=== PATIENT | male | born 1965 | race Caucasian/White ===

== ENCOUNTER → 2016-08-26 | Outpatient (CLI) | payer BC ==
[~2016-08-26] MED LIST: PEDICHW50 PO; PRLSR20 PO
--- NOTE | 2016-08-26 08:37 | DIAGNOSTIC IMAGING REPORT ---
FUSION CT SINUSES W/O CLINICAL HISTORY: Nasal septal deviation and sinonasal disease. COMPARISON STUDY: No previous studies for comparison. FINDINGS: Helical images were acquired in the transverse plane. The study was reviewed on the 3-D workstation. There is no hydrocephalus. No orbital lesions are visualized. The mastoid air cells are symmetrically aerated. Middle ear cavities are symmetrically aerated. There is minimal mucosal thickening within the sphenoid, ethmoid, frontal and maxilla sinuses. There are no air-fluid levels to indicate acute sinusitis. The right ostiomeatal unit is widely patent. There is minimal ostial narrowing of the left ostiomeatal unit. The ethmoid notches are covered. The olfactory fossa depth is 4.5 mm bilaterally. There is a left-sided nasal septal spur. The frontoethmoidal recesses are patent bilaterally. IMPRESSION: 1. No evidence of acute sinusitis 2. Very minimal paranasal sinus mucosal thickening 3. Left-sided is septal spur 4. Minimal ostial narrowing of the left ostiomeatal unit Electronically signed by: Lenin Bennett M.D. 08/26/2016 8:35 AM Dictated Date/Time: 08/26/2016 8:29 AM
== END | disposition home or self-care (01) ==
LOC: C.CTS 08:19
DX: J34.2 Deviated nasal septum (principal); J34.89 Other specified disorders of nose and nasal sinuses

== ENCOUNTER → 2016-10-07 | Day surgery (SDC) | payer BC ==
[2016-09-23 12:45] VITALS: Ht 182.9 cm; Wt 77.3 kg
--- NOTE | 2016-10-03 10:33 | DIAGNOSTIC IMAGING REPORT ---
CHEST 2 VIEWS ROUTINE CLINICAL HISTORY: V72.84, Z01.818 preoperative evaluation COMPARISON STUDY: 07/20/2011 FINDINGS: Mild chronic interstitial fibrotic change. No focal infiltrate. Mild underlying emphysematous change. IMPRESSION: Chronic change. No acute process. Electronically signed by: Gallito Pal M.D. 10/03/2016 10:31 AM Dictated Date/Time: 10/03/2016 10:31 AM
[2016-10-03 11:08] LABS: BASO % 0.3 %; BASO ABS # 0.02 K/uL (0-0.2); COMPLETE YES; EOS % 1.3 %; HEMATOCRIT 43.1 % (42-52); IG% 0.3 %; LYMPH % 17.2 %; LYMPH ABS # 1.18 K/uL (1.2-3.4); MEAN CELL VOLUME 94.1 fL (80-100); MEAN CORPUSCULAR HEMOGLOBIN 33.6 pg (25-34); MEAN CORPUSCULAR HGB CONC 35.7 g/dl (32-36); MEAN PLATELET VOLUME 10.6 fL (7.4-10.4); MONO % 7.6 %; NEUT % 73.3 %; PLATELET COUNT 211 K/uL (130-400); RED BLOOD COUNT 4.58 M/uL (4.7-6.1); WHITE BLOOD COUNT 6.87 K/uL (4.8-10.8)
[2016-10-03 11:17] LABS: POTASSIUM 4.4 mmol/L (3.5-5.1)
[2016-10-03 11:18] LABS: INR 0.9 (0.9-1.1); PARTIAL THROMBOPLASTIN RATIO 1.1; PROTHROMBIN TIME (PATIENT) 9.9 SECONDS (9.0-12.0)
[~2016-10-07] VITALS: Ht 182.9 cm; Wt 77.3 kg
[~2016-10-07] MED LIST changes: +CEFAZOLIN 2000 MG/60 ML D5W IV SCH; +DEXAMETHASONE SOD INJ 4 MG/ML VIAL ONE; +EpINEphrine INJ 1MG/ML AMP 1 MG/ML AMP ONE; +FENTANYL CITRATE INJ 50 MCG/1 ML 2 ML VIAL ONE; +HYDROCODONE/ACETAMOPHEN 5/325MG TAB PO PRN; +LACTATED RINGER'S 1000ML 1,000 ML IV SCH; +LIDOCAINE 4% MPF SOAK 5 ML = 1 DOSE TOP ONE; +LIDOCAINE HCL 2% 2 ML VIAL (20MG/ML) ONE; +LIDOCAINE/EPINEPHRINE 1% INJ 50 ML VIAL ONE; +MIDAZOLAM HCL 1 MG/ML 2ML VIAL ONE; +ONDANSETRON INJ 2 MG/ML 2 ML VIAL IV PRN; +ONDANSETRON INJ 2 MG/ML 2 ML VIAL ONE; +OXYMETAZOLINE HCL 0.05% NA SPR 15 ML BTL PRN; +OXYMETAZOLINE HCL 0.05% NA SPR 15 ML BTL SCH; +PROPOFOL IV EMULSION 10 MG/ML 20 ML VIAL IV ONE; +SUCCINYLCHOLINE CHLORIDE 20 MG/ML 10 ML VIAL IV ONE
--- NOTE | 2016-10-07 11:52 | History & Physical Bridge - SC ---
H&P Re-Evaluation Bridge Note: I have examined the patient, reviewed the History & Physical and in the interval since the performance of the History & Physical I have noted the following changes of clinical significance: No changes noted
--- NOTE | 2016-10-07 12:05 | History and Physical: Surg Cnt ---
History & Physical Date Oct 07, 2016. Chief Complaint L>R NASAL OBSTRUCTION History of Present Illness The patient is a 51 year old male with complaints of L>R NASAL OBSTRUCTION Past Medical/Surgical History Medical Problems: (1) Crohn's disease GERD, ARTHRITIS PSH: S/P FOOT AND HAND SURGERIES Allergies Coded Allergies: No Known Allergies (Verified , 10/07/16) Home Medications Scheduled Omeprazole (Prilosec), 20 MG PO BID PRN Pediatric Multiple Vitamin W/ (Flintstones Chewable), 1 TAB PO QAM Physical Examination Skin: warm/dry, no rash Eyes: normal inspection, EOMI, sclerae normal ENT: + pertinent finding (L DNS, R>L ITH) Head: normocephalic, atraumatic Neck: supple, no adenopathy, trachea midline Respiratory/Chest: lungs clear, normal breath sounds, no respiratory distress Neurologic/Psych: no motor/sensory deficits, alert, normal reflexes, oriented x 3 Diagnosis L DNS, R>L ITH Plan of Treatment SEPTOPLASTY AND BILATERAL INFERIOR TURBINATE REDUCTION
--- NOTE | 2016-10-07 12:42 | [facility] Operative Report ---
Operative Report Operative Date Oct 07, 2016. Pre-Operative Diagnosis Septal Deviation, Bilateral Inferior Turbinate Hypertrophy Post-Operative Diagnosis Same Procedure(s) Performed Septoplasty, Bilateral Inferior Turbinate Reduction Surgeon Dr Rojas Division Engineer Surgeon(s) None Estimated Blood Loss 10ml Findings 1. SEVERE L DNS WITH LARGE POSTERIOR SEPTAL SPUR 2. R>L ITH Specimens None I attest to the content of the Intraoperative Record and any orders documented therein. Any exceptions are noted below.
--- NOTE | 2016-10-07 12:44 | Discharge Instructions ---
Discharge Instructions Date of Service Oct 07, 2016. Admission Reason for Admission: SEPTAL DEVIATION, BILATERAL INFERIOR TURBINATE HYPERTROPHY Discharge Discharge Diagnosis / Problem: SAME Discharge Goals Goal(s): Therapeutic intervention Activity Recommendations Activity Limitations: as noted below 1. LIGHT ACTIVITY FOR 2WEEKS 2. NO DRIVING WHILE ON NORCO 3. NO NOSE BLOWING FOR 2 WEEKS . Current Hospital Diet Patient's current hospital diet: Discharge Diet Recommended Diet: Regular Diet Procedures Procedures Performed: Septoplasty, Bilateral Inferior Turbinate Reduction Pending Studies Studies pending at discharge: no Medical Emergencies . Who to Call and When: Medical Emergencies: If at any time you feel your situation is an emergency, please call 911 immediately. . Non-Emergent Contact Non-Emergency issues call your: Surgeon . . "Provider Documentation" section prepared by Moncho Rojas. VTE Core Measure Inpt VTE Proph given/why not?: SCD's
--- NOTE | 2016-10-07 13:17 | Anesthesia Progress Nt - [facility] ---
Anesthesia Post Op Note Date & Time Oct 07, 2016 at 13:17 Vital Signs Pain Intensity: 0 Vital Signs Past 12 Hours Date Time Temp Pulse Resp B/P Pulse Ox O2 Delivery O2 Flow Rate FiO2 10/07/16 13:10 36.6 71 20 10/07/16 13:10 72 20 136/90 97 10/07/16 13:05 63 14 130/94 96 10/07/16 13:05 62 14 10/07/16 13:00 63 16 10/07/16 13:00 64 16 140/93 97 10/07/16 12:55 68 20 10/07/16 12:55 68 20 136/86 97 10/07/16 12:50 72 19 138/86 100 10/07/16 12:50 72 19 10/07/16 12:45 74 12 10/07/16 12:45 74 12 138/88 100 10/07/16 12:42 36.4 70 16 128/83 100 Humidified Oxygen 6 Mask 10/07/16 12:40 71 10/07/16 12:40 71 128/83 99 10/07/16 11:21 36.6 60 16 123/79 98 Room Air Notes Mental Status: alert / awake / arousable, participated in evaluation Pt Amnestic to Procedure: Yes Nausea / Vomiting: adequately controlled Pain: adequately controlled Airway Patency, RR, SpO2: stable & adequate BP & HR: stable & adequate Hydration State: stable & adequate Anesthetic Complications: no major complications apparent
--- NOTE | 2016-10-07 13:18 | OPERATIVE REPORT ---
DATE OF OPERATION: 10/07/2016 PREOPERATIVE DIAGNOSES: 1. Left septal deviation. 2. Right greater than left inferior turbinate hypertrophy. POSTOPERATIVE DIAGNOSES: 1. Left septal deviation. 2. Right greater than left inferior turbinate hypertrophy. PROCEDURES: 1. Septoplasty. 2. Bilateral inferior turbinate outfracture and turbinoplasty. SURGEON: Dr. Rojas. ANESTHESIA: General endotracheal. ESTIMATED BLOOD LOSS: 10 mL. FINDINGS: 1. Severe left septal deviation with large bony septal spur impinging on the airway posteriorly. 2. Right greater than left inferior turbinate hypertrophy. SPECIMENS: None. COMPLICATIONS: None. INDICATIONS FOR THE PROCEDURE: The patient is a 51-year-old male with a history of left greater than right nasal airway obstruction which was unresponsive to maximal medical therapy with nasal steroids and nasal antihistamine sprays. CT scan of the sinuses was obtained which revealed a severe left septal deviation posteriorly with a large septal spur. He also has a right greater than left inferior turbinate hypertrophy. The patient presents for the above-mentioned procedure on an outpatient elective basis. DESCRIPTION OF PROCEDURE: After informed consent had been obtained from the patient, the patient was wheeled to the operating room and placed on the operating table in supine position. Monitors were placed. After induction of general endotracheal anesthesia, the patient's abdomen was prepped in the usual fashion for septoplasty. A total of 10 mL of 1% lidocaine with 1:100,000 epinephrine was used to inject the nasal septum bilaterally, thereby performing hydrodissection of the mucoperichondrial mucoperiosteal flaps. Lidocaine and epinephrine pledgets were then placed in the bilateral nasal cavities and pressure applied. The pledgets were then removed. A #15 scalpel was used to make a left Bronaugh incision through which the left-sided mucoperichondrial mucoperiosteal flap was elevated. A #15 scalpel was then used to incise the quadrangular cartilage with care to preserve a 1.5 cm dorsal and caudal strut and the right sided mucoperichondrial and mucoperiosteal flap was elevated through this cartilaginous incision. The deviated portion of the quadrangular cartilage was then removed using a Rachael knife. An osteotome, mallet, and Igor forceps was then used to remove a large bony septal spur which was impinging on the airway posteriorly and nearly occluding at 100% on the left hand side. The left Ko incision was then closed with several simple interrupted 4-0 chromic sutures. A 4-0 plain gut suture on a Larry needle was then used to perform a clothing stitch of the mucoperichondrial mucoperiosteal flaps bilaterally to help prevent septal hematoma. A Fernandez elevator was then used to infracture and subsequently outfractured and the inferior turbinates bilaterally. Inferior turbinates were injected with 3 mL of 1% lidocaine with 1:100,000 epinephrine. A 2.0 mm turbinate blade using powered instrumentation was then used to perform bilateral inferior turbinoplasties in a submucosal fashion. Sinonasal cavities were then suctioned. An orogastric tube was placed and the stomach was suctioned free of air and stomach contents. This marked the end of the case. The patient tolerated the procedure well and there were no apparent complications. The patient was extubated and transferred to recovery room in stable condition. I attest to the content of the Intraoperative Record and any orders documented therein. Any exceptio ns are noted below.
[2016-10-07 13:19] VITALS: TEMP 36.6
[2016-10-07 13:39] VITALS: BP 130/82; PULSE 58; O2SAT 97
== END | disposition home or self-care (01) ==
LOC: X.SURG 11:08
DX: J34.2 Deviated nasal septum (principal); J34.3 Hypertrophy of nasal turbinates; K21.9 Gastro-esophageal reflux disease without esophagitis; M19.90 Unspecified osteoarthritis, unspecified site

== ENCOUNTER 2025-03-19 08:55 | Inpatient (IN) ==
--- NOTE | 2025-02-19 15:32 | PAT Medication Instructions ---
Medication Instructions Date of Service February 19, 2025 Home Medications lorazepam 0.5 mg tablet 0.5 mg PO DAILY PRN Anxiety omeprazole 20 mg capsule,delayed release 20 mg PO BID acetaminophen 500 mg tablet 1,000 mg PO BID PRN Pain celecoxib 200 mg capsule (Celebrex) 200 mg PO QAM losartan 50 mg tablet 100 mg PO QAM Continue as directed lorazepam 0.5 mg tablet 0.5 mg PO DAILY PRN Anxiety (if needed) ASK your surgeon for instructions celecoxib 200 mg capsule (Celebrex) 200 mg PO QAM DO NOT take the morning of surgery losartan 50 mg tablet 100 mg PO QAM Take morning of surgery With a small sip of water, OTHERWISE NOTHING TO EAT OR DRINK AFTER MIDNIGHT: omeprazole 20 mg capsule,delayed release 20 mg PO BID acetaminophen 500 mg tablet 1,000 mg PO BID PRN Pain (if needed) Take evening before surgery omeprazole 20 mg capsule,delayed release 20 mg PO BID acetaminophen 500 mg tablet 1,000 mg PO BID PRN Pain (if needed) Other Notes If you have any questions please call us at [phone] or [phone] or [phone] or [phone]
--- NOTE | 2025-02-28 09:25 | Anesthesiology Consultation ---
Date of Service February 28, 2025 Assessment & Plan (1) Encounter for pre-operative examination: - awaiting surgeon ordered S PCP clearance 03/11. Chart Review Chart Review: Pending: Refer to Additional Notes / Consult section and Patient seen in Pre Admission Testing Teaching & Discussion Pre-Anesthesia Teaching/Discussion Notes: Instructed NPO after midnight before surgery, except medications with 15 cc of water. Medication instructions provided according to the PAT guidelines. History Surgery Operation Date: 03/19/25 09:05 Proposed Procedures p L4-L5 Decompression and Fusion - Tan Carmichael DO Height/Weight Height: 5 ft 11 in Weight: 79.4 kg Allergies Allergy/AdvReac Type Severity Reaction Status Date / Time No Known Drug Allergies Allergy Verified 02/19/25 14:32 Medications Home Medications Medication Instructions Recorded Confirmed Last Taken lorazepam 0.5 mg tablet 0.5 mg PO DAILY PRN Anxiety 08/27/19 02/19/25 Unknown omeprazole 20 mg capsule,delayed 20 mg PO BID 08/27/19 02/19/25 07/06/23 release acetaminophen 500 mg tablet 1,000 mg PO BID PRN Pain 02/19/25 02/19/25 Unknown celecoxib 200 mg capsule (Celebrex) 200 mg PO QAM 02/19/25 02/19/25 Unknown losartan 50 mg tablet 100 mg PO QAM 02/19/25 02/19/25 Unknown Past Medical History Medical History (Updated 02/28/25 @ 13:08 by Sara Flores PA-C) Acid reflux controlled, stable per pt History of hypertension controlled, stable per pt Hx of Crohn's disease Patient denies h/o stroke, seizures, heart attack, heart failure, DM, blood clots/DVTs or blood transfusions. Exercise / Class Metabolic Activity II 4-5 Yardwork/Stairs/Walk up hill (denies chest discomfort or shortness of breath with one flight of stairs) Past Family History Family History Other Cancer Cardiac abnormality Hearing loss Hypertension Sinusitis Stroke Past Surgical History Surgical History (Updated 02/28/25 @ 13:09 by Sara Flores PA-C) History of colonoscopy History of esophagogastroduodenoscopy (EGD) History of foot surgery left History of hand surgery patient unsure which hand History of sinus surgery Past Anesthesia History No Hx of Anesthesia Complications and No Family Hx of Anesthesia Complications History of PONV No Hx of PONV and No Hx of Motion Sickness Social History Smoking Status: Former smoker Do You Dip or Chew Tobacco: No Smoking End Date: 2 weeks ago Hx Alcohol Use: Yes alcohol intake frequency: 0-2 drinks per day (2-3 hard liquor) Hx Substance Use: No substance use type: does not use Review of Systems Snoring, denies witnessed apneas. Patient denies chest pain, shortness of breath, dyspnea on exertion, fever, chills, cough, wheezing, or palpitations. Physical Exam Vital Signs Vitals BP 145/84 P 78 TEMP 97.8 SP02 98% on RA RESP 18 Physical Patient resting comfortably in chair in no acute distress, alert and oriented, responding appropriately throughout visit Full cervical extension range of motion without pain TMD 3.5 finger breadths Mallampati Score 2 Dentition: one crown, denies chipped or loose teeth, caps, implants or bridges Lungs: normal respiratory effort. Good air movement, clear throughout to auscultation, no adventitious breath sounds Cardiac: regular rate and rhythm, no murmurs noted Carotid arteries: negative bruit bilat Lab Results Anesthesia Preop Results Results Anesthesia Widget: WBC 7.57 K/ul (4.8-10.8) 02/28/25 Hgb 13.2 g/dl (14.0-18.0) L 02/28/25 Hct 36.8 % (42.0-52.0) L 02/28/25 Plt 227 K/uL (130-400) 02/28/25 Na 136 mmol/L (136-145) 02/28/25 K 3.7 mmol/L (3.5-5.1) 02/28/25 Cl 102 mmol/L (98-107) 02/28/25 CO2 26 mmol/L (21-32) 02/28/25 BUN 11 mg/dl (6-23) 02/28/25 Creat 0.83 mg/dl (0.6-1.4) 02/28/25 Glucose Level 85 mg/dl (70-99(Fasting)) 02/28/25 PT 10.2 Seconds (9.0-12.0) 02/28/25 PTT 29 Seconds (21-31) 02/28/25 INR 0.9 (0.9-1.1) 02/28/25 Urine Color Yellow 02/28/25 Urine Appearance Clear (Clear) 02/28/25 Urine pH 6.5 (4.5-7.5) 02/28/25 Urine Specific [place] 1.010 (1.000-1.030) 02/28/25 Urine Protein Negative (Negative) 02/28/25 Urine Glucose (UA) Negative (Negative) 02/28/25 Urine Ketones Negative (Negative) 02/28/25 Urine Blood Negative (Negative) 02/28/25 Urine Nitrite Negative (Negative) 02/28/25 Urine Bilirubin Negative (Negative) 02/28/25 Urine Urobilinogen Negative (Negative) 02/28/25 Urine Leukocyte Esterase Negative (Negative) 02/28/25 Blood Type O Positive 02/28/25 Antibody Screen NEGATIVE 02/28/25 Testing Electrocardiogram Date: 02/28/25 NSR, rate 73 bpm Incomplete RBBB Chest X-Ray Date: 02/28/25 No acute findings.
[2025-03-19] MEDS ORDERED: PROPOFOL IV EMULSION 10 MG/ML 20 ML VIAL IV ONE (09:17)
[2025-03-19] MEDS ORDERED: LIDOCAINE 2% 2 ML VIAL/AMP(20MG/ML) INFIL ONE (09:17)
[2025-03-19] MEDS ORDERED: MIDAZOLAM HCL 1 MG/ML 2ML VIAL ONE (09:17)
[2025-03-19] MEDS ORDERED: ROCURONIUM BROMIDE 10 MG/ML 5 ML VIAL IV ONE (09:17)
[2025-03-19] MEDS ORDERED: ONDANSETRON INJ 2 MG/ML 2 ML VIAL ONE (09:17)
[2025-03-19] MEDS ORDERED: DEXAMETHASONE SOD INJ 4 MG/ML VIAL ONE ×2 (09:17→10:37)
[2025-03-19] MEDS: LR 15ML/HR IV SCH (09:25)
[2025-03-19] MEDS: LR 60ML/HR IV SCH (09:25)
[2025-03-19] MEDS: ACETAMINOPHEN 500 MG TAB PO SCH (09:26)
[2025-03-19] MEDS: GABAPENTIN 600 MG DOSE PO SCH (09:26)
[2025-03-19] MEDS: CeleBREX 200 MG CAP PO SCH (09:26)
--- NOTE | 2025-03-19 09:54 | History & Physical Bridge Note ---
Date of Service March 19, 2025 History & Physical Bridge Note I have examined the patient, reviewed the History & Physical and in the interval since the performance of the History & Physical I have noted the following changes of clinical significance: no changes noted
--- NOTE | 2025-03-19 09:56 | History & Physical Report ---
Date of Service March 19, 2025 Assessment & Plan (1) Spondylolisthesis, lumbar region: Plan: Decompression fusion L4-L5 History of Present Illness Chief Complaint: Back and leg pain Primary Care Provider: Rafael Blanc MD This is a 59-year-old male presents cardiac send back and leg pain and failing course of nonoperative care is here for surgical invention. Allergies Allergy/AdvReac Type Severity Reaction Status Date / Time No Known Drug Allergies Allergy Verified 03/19/25 09:15 Home Medications Medication Instructions Recorded Confirmed Type lorazepam 0.5 mg tablet 0.5 mg PO DAILY PRN Anxiety 08/27/19 03/19/25 History omeprazole 20 mg capsule,delayed 20 mg PO BID 08/27/19 03/19/25 History release acetaminophen 500 mg tablet 1,000 mg PO BID PRN Pain 02/19/25 03/19/25 History celecoxib 200 mg capsule (Celebrex) 200 mg PO QAM 02/19/25 03/19/25 History losartan 50 mg tablet 100 mg PO QAM 02/19/25 03/19/25 History cholecalciferol (vitamin D3) 125 250 mcg PO DAILY 03/19/25 03/19/25 History mcg (5,000 unit) tablet (Vitamin D3) Past Med/Surg History Problem List (Updated 03/19/25 @ 09:56 by Tan Carmichael DO) Spondylolisthesis, lumbar region Encounter for pre-operative examination Allergic rhinitis Chronic sinusitis Crohn's disease 1st MTP arthritis Medical History (Updated 03/19/25 @ 09:56 by Tan Carmichael DO) History of smoking Quit smoking January 2025 (smoked 2 packs a day for 20 years) Hx of Crohn's disease History of hypertension controlled, stable per pt Acid reflux controlled, stable per pt Surgical History History of esophagogastroduodenoscopy (EGD) History of sinus surgery History of hand surgery patient unsure which hand History of foot surgery left History of colonoscopy Family History Other Cancer Cardiac abnormality Hearing loss Hypertension Sinusitis Stroke Social History (Updated 08/27/19 @ 10:09 by Amna Ibanez MA) Smoking Status: Former smoker Tobacco Type: Cigarettes Smoking End Date: 2 weeks ago; Second Hand Exposure: No; Do You Dip or Chew Tobacco: No; Tobacco Cessation Education Requested by Patient: No Hx Alcohol Use: Yes Hx Substance Use: No Preferred Language: Occitan Communication Ability: Effective Residential Sales Consultant Required: No Beliefs That Will Affect Care: None Current Living Situation: Spouse current occupational status: employed Other Information That Helps Us Care for You: No Feels Safe at Home: Yes Safety Concerns: Feels Safe At This Time Assistive Devices: Glasses Physical Exam Physical Exam: Patient is alert and oriented heart regular rhythm lungs clear Results & Data Results & Data Vital Signs (Past 12 Hours) Vital Signs Temp Pulse Resp BP BP Pulse Ox O2 Del Method 03/19/25 09:19 36.9 C 68 18 192/105 H 172/112 H 99 Room Air
[2025-03-19] MEDS ORDERED: ATROPINE SULFATE 0.1 MG/ML 10ML SYR IV PRN (10:05)
[2025-03-19] MEDS ORDERED: ONDANSETRON INJ 2 MG/ML 2 ML VIAL IV PRN ×2 (10:05→13:06)
[2025-03-19] MEDS ORDERED: PROMETHAZINE HCL 6.25 MG in SODIUM CHLORIDE 0.9% 50 ML IV PRN (10:05)
[2025-03-19] MEDS ORDERED: SUGAMMADEX SODIUM 200 MG/2 ML VIAL IV ONE (10:51)
[2025-03-19] MEDS ORDERED: ePHEDrine sulfate 50 MG/5 ML SYR ONE (11:06)
[2025-03-19] MEDS ORDERED: PHENYLEPHRINE 100MCG/ML 5ML SYR ONE (11:06)
[2025-03-19] MEDS: BUPIVACAINE/EPINEPHRINE 0.25% 1:200,000 30 ML VIAL ONE (11:18)
[2025-03-19] MEDS: ceFAZolin 330 MG/ML 1 GM VIAL ONE (11:47)
--- NOTE | 2025-03-19 11:58 | Operative Report ---
Post Operative Report Pre & Post Diagnosis Operation Date: 03/19/25 10:25 Pre-Op Diagnosis: #1 spondylolisthesis Lumbar Region #2 lumbar spondylosis with radiculopathy Post-Op Diagnosis: Same I identified the patient and participated in the time-out.: Yes Procedure Operation Date: 03/19/25 10:25 Actual Procedures #1 lumbar decompression bilateral facetectomies and foraminotomies L3-L4 L4-5 for #2 posterior spinal fusion L4-5 #3 placement posterior instrumentation L4-L5 using camper. #4 interbody fusion L4-5 #5 placement of Spira 15 x 26 mm x 2 at L4-5. #6 placement locally harvested morselized autograft and posterior gutters. #7 placement of Proteus combined with Koros in the posterior lateral gutters and os design interbody space. #8 application of versa wrap of the exposed dura. Surgeon Tan Carmichael, Plater Hot Dip Razia Rios Estimated Blood Loss 50 Findings Consistent with Post-Op Diagnosis Specimens None Indications This is a 59-year-old male presents problems diagnosis of failing course of nonoperative care is here for surgical invention. Description of Procedure Patient was met with identified informed consent obtained. Patient was then taken to the operative suite underwent intubation placed in a prone position on the Roberto table on top of the Gwyn frame. All bony prominences well-padded eyes inspected to ensure no external pressure placed upon them. This point the lumbar spine was prepped and draped in normal sterile fashion. Sharp dissection with the assistance of Bovie cautery performed down to and exposing the lamina and transverse processes of L4-L5. From caudal to cephalad fashion complete laminectomy of L4 was performed including bilateral medial facetectomy and foraminotomies addressing severe neural compression. This followed by partial laminectomy of L3 with bilateral medial facetectomies to address all subarticular stenosis. Pedicle screws were then placed in L4-L5 bilaterally with assistance of fluoroscopy and the proper size nelida placed. By way of transforaminal approach on the right a discectomy of L for L5 was performed endplates guided to subcortical bleeding bone and a 15 x 26 mm spiral cage tapped into position. Then proceeded to the left transforaminal region at L4-5. Again discectomy performed. Endplates guided to subcortical bleeding bone and a second 15 x 26 mm spiral cage tapped in position. Please note both cages were packed with os design bone graft. The rods were then compressed locked in final position bilaterally. The transverse processes of L4-L5 burred to subcortical bleeding bone. Proteus combined with Koros and local graft placed in posterior gutters. Versa wrap placed over the exposed dura. 15 round LITO drain inserted. The incision was then closed with 1 Vicryl the fascia 2-0 Vicryl subcutaneously and 4 Monocryl for final skin closure. Steri-Strips and sterile dressing placed. Patient waken taken to PACU in stable condition. Please note Razia Rios was present at the entire procedure and on the patient positioning complex portion of the surgery and final skin closure. Im ordering 10 grams of Collagen Powder ([facility] A6010 Primary Dressing) and 10 bordered super absorbent ([facility] A6196 Secondary Dressing) to treat an incision wound that was caused by a spine procedure. The incision is approximately 2 cm(W) x 2 cm(L) down to the spinal column and epidural space 2 cm (D) in size and is a full thickness wound showing no signs of infection. Collagen comes in 1 gram packets so 10 packets were ordered. Given the size of the wound, with moderate exudate I chose to order a 10 day supply. The patient will be provided instructions for proper application of the collagen wound kit. The patient will be asked to apply the collagen powder daily and then cover it with sterile dressings dispensed. Collagen was selected as I expect the collagen to attract monocytes and fibroblasts, act as a sacrificial substrate for MMPs, and ultimately proved a matrix for tissue and vessel growth. The collagen will act as a primary dressing in this scenario. It is medically necessary for proper healing of these wounds to improve bioavailability and contact with each wound surface, this is also to help prevent infection of wounds and promote healing ultimately leading to a better healing outcome and limit the risk of infection. I attest to the content of the Intraoperative Record and any orders documented therein. Any exceptions are noted below.
[2025-03-19] MEDS ORDERED: HYDROmorphone INJ 0.5 MG/0.5 ML SYR IV PRN (13:06)
[2025-03-19] MEDS ORDERED: DO NOT ADMINISTER PNEUMOCOCCAL VACCINE PRN (13:06)
[2025-03-19] MEDS ORDERED: PROMETHAZINE 12.5 MG/50.5 ML BAG IV PRN (13:06)
[2025-03-19] MEDS ORDERED: MAGNESIUM HYDROXIDE SUSP 30 ML UDC PO PRN (13:06)
[2025-03-19] MEDS ORDERED: SOD PHOSPHATE/SOD BIPHOSPHATE ENEMA 132 ML BTL PR PRN (13:06)
[2025-03-19] MEDS ORDERED: ONDANSETRON 4 MG OD TAB PO PRN (13:06)
[2025-03-19] MEDS ORDERED: diphenhydrAMINE Capsule 25 MG CAP PO PRN (13:06)
[2025-03-19] MEDS ORDERED: DO NOT ADMINISTER FLU VACCINE PRN (13:06)
[2025-03-19] MEDS ORDERED: ALUMINUM/MAGNESIUM SUSP 30 ML UDC PO PRN (13:06)
[2025-03-19] MEDS ORDERED: NALOXONE HCL 0.4 MG/1 ML VIAL/CARP IV PRN (13:06)
[2025-03-19] MEDS ORDERED: FAMOTIDINE 20 MG TAB PO PRN (13:06)
[2025-03-19] MEDS ORDERED: ACETAMINOPHEN 1,000 MG/100 ML VIAL IV PRN (13:06)
[2025-03-19] MEDS ORDERED: METOCLOPRAMIDE HCL INJ 5 MG/ML 2 ML VIAL IV PRN (13:06)
[2025-03-19] MEDS: HYDROmorphone INJ 1 MG/ML SYRINGE IV PRN (13:25)
[2025-03-19] MEDS: FLOSEAL HEMOSTATIC MATRIX 10ML TOP ONE (14:04)
[2025-03-19] MEDS: LACTATED RINGER'S 1,000 ML IV SCH (14:15)
--- NOTE | 2025-03-19 14:34 | Anesthesiology Progress Note ---
Date of Service March 19, 2025 Anesthesia Post Procedure Vital Signs Vital Signs: Temp Pulse Pulse Resp BP BP Pulse Ox 03/19/25 13:59 36.4 C L 78 16 160/92 H 97 03/19/25 13:30 37 C 71 16 161/91 H 93 03/19/25 13:00 36.3 C L 70 16 156/94 H 98 03/19/25 12:45 80 18 151/93 H 92 03/19/25 12:35 36.3 C L 74 16 154/95 H 96 03/19/25 12:25 68 16 151/98 H 92 03/19/25 12:15 72 14 152/91 H 100 03/19/25 12:05 36.2 C L 93 H 18 157/92 H 99 03/19/25 09:19 36.9 C 68 18 192/105 H 172/112 H 99 O2 Del Method O2 Flow Rate 03/19/25 13:59 Room Air 03/19/25 13:30 Room Air 03/19/25 13:00 Room Air 03/19/25 12:45 Room Air 03/19/25 12:35 Room Air 03/19/25 12:25 Room Air 03/19/25 12:15 Oxymask 4 03/19/25 12:05 Oxymask 6 03/19/25 09:19 Room Air Pain Intensity Back: Pain Intensity: 8 Transfer of Care Handoff Completed per policy Notes Mental Status: alert / awake / arousable Patient Amnestic to Procedure: Yes Nausea / Vomiting: adequately controlled Pain: adequately controlled Airway Patency, RR, SpO2: stable & adequate BP & HR: stable & adequate Hydration State: stable & adequate Anesthetic Complications: no major complications apparent
[2025-03-19] MEDS: KETOROLAC 30 MG/ML VIAL IV PRN (15:21)
--- NOTE | 2025-03-19 15:28 | Hospitalist Consultation ---
Date of Consultation March 19, 2025 Assessment & Plan (1) Spondylolisthesis, lumbar region: (2) S/P spinal surgery: Patient is a 59-year-old male with past medical history significant for HTN, ileocolonic Crohn's disease, GERD, combined forms of age-related cataracts of both eyes, insomnia and tobacco use disorder who is being seen in consultation for routine postoperative medical management after undergoing elective L4-L5 decompression and fusion performed by Dr. Carmichael earlier today for treatment of lumbar spondylosis with radiculopathy after failing nonoperative care. POD #0 s/p L4-L5 decompression and fusion with Dr. Carmichael EBL: 50mL & Preop Hgb: 13.2 as of 02/28/25 Per primary service for pain control, wound care, anticoagulation and activities Continue incentive spirometry, PT/OT when appropriate as per primary service Monitor H/H for acute blood loss anemia and transfuse blood products PRN (3) Crohn's disease: Not currently undergoing active treatment; follows with [facility], Dr. Baig Considering biologic therapy once he recovers from above spinal operation per visit note from 01/30/25 (4) Acid reflux: Continue PPI DVT Prophylaxis: As per primary service PCP: Rafael Blanc MD Disposition: Routine DC planning as per primary service Thank you for this consultation. We will follow the patient with you during their hospital stay. You can reach a member of the [facility] Hospitalist Team 06/02 via [employer]. Patient seen in collaboration with Dr. Ortiz. Please see addendum. I spent a total of 38 minutes coordinating, documenting, and providing care for this patient excluding time spent in the performance of separately billed services or time spent by another provider/QHP. This included personally reviewing all current laboratories and imaging studies, medical reconciliation, outpatient chart review and discussion with specialists. This chart was completed in part utilizing Speech Voice Recognition Software. Grammatical errors, random word insertions, pronoun errors, and incomplete sentences are an occasional consequence of this system due to software limitations, ambient noise, and hardware issues. Any formal questions or concerns about the content, text, or information contained within the body of this dictation should be directly addressed to the provider for clarification. Supervising Physician Co-Signing Physician Notes 59-year-old male was seen and examined at bedside as a medical consultation status post lumbar spine surgery. Patient reports improvement in his BLE radicular signs and symptoms, reports operative pain site under control. Monitor H&H for blood loss anemia. On exam: Low back with clean dressing without soakage, LITO drain with moderate serosanguineous collection noted. Distal neurovascular status WNL. Rest of the examination as above. I have seen and examined the patient and have discussed the case with the provider above. I agree with the assessment and plan as stated. Total time spent independently: 16 minutes. History of Present Illness Reason for Consultation: Routine postoperative medical management Requesting Physician: Tan Carmichael DO Attending Physician: Tan Carmichael DO History of Present Illness Patient is a 59-year-old male with past medical history significant for HTN, ileocolonic Crohn's disease, GERD, combined forms of age-related cataracts of both eyes, insomnia and tobacco use disorder who is being seen in consultation for routine postoperative medical management after undergoing elective L4-L5 decompression and fusion performed by Dr. Carmichael earlier today for treatment of lumbar spondylosis with radiculopathy after failing nonoperative care. History obtained from the patient and associated chart review. Endorses adequate pain control postoperatively, feels BLE radicular symptoms have improved. Denies any chest pain or SOB. Tolerating bites of ice cream without issue. Plans to advance his diet for dinner. Denies any N/V. Allergies Allergy/AdvReac Type Severity Reaction Status Date / Time No Known Drug Allergies Allergy Verified 03/19/25 09:15 Home Medications Medication Instructions Recorded Confirmed Type lorazepam 0.5 mg tablet 0.5 mg PO DAILY PRN Anxiety 08/27/19 03/19/25 History omeprazole 20 mg capsule,delayed 20 mg PO BID 08/27/19 03/19/25 History release acetaminophen 500 mg tablet 1,000 mg PO BID PRN Pain 02/19/25 03/19/25 History celecoxib 200 mg capsule (Celebrex) 200 mg PO QAM 02/19/25 03/19/25 History losartan 50 mg tablet 100 mg PO QAM 02/19/25 03/19/25 History amlodipine 10 mg tablet 10 mg PO DAILY 03/19/25 03/19/25 History cholecalciferol (vitamin D3) 125 250 mcg PO DAILY 03/19/25 03/19/25 History mcg (5,000 unit) tablet (Vitamin D3) oxycodone 5 mg tablet 5 mg PO Q6H PRN pain #30 tabs 03/19/25 03/19/25 Rx tramadol 50 mg tablet 50 mg PO Q6H PRN pain, moderate 03/19/25 03/19/25 Rx #30 tabs Patient History Medical History History of smoking Quit smoking January 2025 (smoked 2 packs a day for 20 years) Hx of Crohn's disease History of hypertension controlled, stable per pt Surgical History History of esophagogastroduodenoscopy (EGD) History of sinus surgery History of hand surgery patient unsure which hand History of foot surgery left History of colonoscopy Family History Other Cancer Cardiac abnormality Hearing loss Hypertension Sinusitis Stroke Social History Smoking Status: Former smoker Tobacco Type: Cigarettes Smoking End Date: 2 weeks ago; Second Hand Exposure: No; Do You Dip or Chew Tobacco: No; Tobacco Cessation Education Requested by Patient: No Hx Alcohol Use: Yes Hx Substance Use: No Preferred Language: Greek Communication Ability: Effective Remote Control Mirror Installer Required: No Beliefs That Will Affect Care: None Current Living Situation: Spouse current occupational status: employed Other Information That Helps Us Care for You: No Feels Safe at Home: Yes Safety Concerns: Feels Safe At This Time Assistive Devices: Glasses Review of Systems Review of Systems: At least ten systems reviewed and negative, except as noted in the HPI. Physical Exam Physical Exam: General: WD/WN, NAD, sitting up in bed, pleasant, conversing appropriately, A+Ox3, at bedside HEENT: Normocephalic, atraumatic, oropharynx normal Respiratory: Normal respiratory effort, CTAB Cardiovascular: RRR, normal peripheral pulses, no BLE edema Abdomen/GI: Active bowel sounds, soft, nontender to palpation in all quadrants Extremities/Musculoskeletal: No cyanosis/clubbing, actively moves all extremities, surgical dressing on low back C/D/I, LITO drain x 1 with serosanguineous outpt Neurologic: No overt focal deficits, CN's II-XI not formally tested but appear grossly intact bilaterally Results & Data Results & Data Vital Signs (Past 12 Hours) Vital Signs Temp Pulse Pulse Resp BP BP Pulse Ox 03/19/25 15:00 36.3 C L 77 16 155/93 H 95 03/19/25 13:59 36.4 C L 78 16 160/92 H 97 03/19/25 13:30 37 C 71 16 161/91 H 93 03/19/25 13:00 36.3 C L 70 16 156/94 H 98 03/19/25 12:45 80 18 151/93 H 92 03/19/25 12:35 36.3 C L 74 16 154/95 H 96 03/19/25 12:25 68 16 151/98 H 92 03/19/25 12:15 72 14 152/91 H 100 03/19/25 12:05 36.2 C L 93 H 18 157/92 H 99 03/19/25 09:19 36.9 C 68 18 192/105 H 172/112 H 99 O2 Del Method O2 Flow Rate 03/19/25 15:00 Room Air 03/19/25 13:59 Room Air 03/19/25 13:30 Room Air 03/19/25 13:00 Room Air 03/19/25 12:45 Room Air 03/19/25 12:35 Room Air 03/19/25 12:25 Room Air 03/19/25 12:15 Oxymask 4 03/19/25 12:05 Oxymask 6 03/19/25 09:19 Room Air (3) Crohn's disease Digestive disease complication type: without complication Gastrointestinal tract location: unspecified location Qualified Code(s): K50.90 - Crohn's disease, unspecified, without complications (4) Acid reflux Esophagitis presence: esophagitis presence not specified Qualified Code(s): K21.9 - Gastro-esophageal reflux disease without esophagitis
[2025-03-19] MEDS: DOCUSATE SODIUM/SENNA 50/8.6MG TAB PO SCH (21:21)
[2025-03-19] MEDS: LORazepam 0.5 MG TAB PO PRN (21:31)
[2025-03-20] MEDS: POLYETHYLENE (MIRALAX) 17 GM PACK PO SCH (05:41)
[2025-03-20 06:01] LABS: Hematocrit (blood only) 30.3 % (42.0-52.0); Hemoglobin 10.7 g/dl (14.0-18.0); Immature Granulocytes # (auto) 0.03 K/uL (0.01-0.20); Immature Granulocytes % (auto) 0.3 %; Mean Corpuscular Hemoglobin 32.8 pg (25.0-34.0); Mean Corpuscular Volume 92.9 fL (80.0-100.0); Platelet Count 192 K/uL (130-400); RDW Standard Deviation 43.1 fL (36.4-46.3); Red Blood Count 3.26 M/uL (4.70-6.10); White Blood Count 11.57 K/ul (4.8-10.8)
[2025-03-20 06:17] LABS: Anion Gap 6.0 (3-11); Blood Urea Nitrogen 10.0 mg/dl (6-23); Calcium 8.6 mg/dl (8.6-10.3); Carbon Dioxide 27.0 mmol/L (21-32); Chloride 104.0 mmol/L (98-107); Creatinine Clr Calc Pharmacy 94.1 ml/min; Glucose 107.0 mg/dl (70-99(Fasting)); Potassium 3.5 mmol/L (3.5-5.1); Sodium 137.0 mmol/L (136-145)
--- NOTE | 2025-03-20 08:29 | Orthopedic Progress Note ---
Date of Service March 20, 2025 Assessment & Plan (1) Spondylolisthesis, lumbar region: Plan: Today we will begin official physical therapy. Ambulate as tolerated. Monitor LITO output. Hopefully discharge over next few days. Admission and Anticipated Discharge Date Admission Date: March 19, 2025 Subjective Patient's back pain is controlled leg symptoms improved. Physical Exam Physical Exam: Patient is currently in bed. Appears comfortable. Distracted testing. Results & Data Vital Signs (Past 12 Hours) Vital Signs Temp Pulse Resp BP BP Pulse Ox O2 Del Method 03/20/25 07:54 36.8 C 73 18 148/86 H 96 Room Air 03/20/25 07:41 Room Air 03/20/25 03:00 36.8 C 77 18 100/57 L 95 Room Air 03/19/25 23:00 36.8 C 75 16 124/75 94 Room Air
[2025-03-20] MEDS: CHOLECALCIFEROL 125 MCG (5,000 UNITS) TAB PO SCH (09:40)
[2025-03-20] MEDS: LOSARTAN POTASSIUM 50 MG TAB PO SCH (09:40)
[2025-03-20] MEDS: dexAMETHasone 6 MG in SYRINGE 0 ML IV SCH (09:44)
--- NOTE | 2025-03-20 10:23 | Hospitalist Progress Note ---
Date of Service March 20, 2025 Assessment & Plan (1) Spondylolisthesis, lumbar region: (2) S/P spinal surgery: Plan: Mr. Blevins is a 59-year-old male with past medical history significant for HTN, ileocolonic Crohn's disease, GERD, combined forms of age-related cataracts of both eyes, insomnia and tobacco use disorder who is being seen in consultation for routine postoperative medical management after undergoing elective L4-L5 decompression and fusion performed by Dr. Carmichael 03/19 for treatment of lumbar spondylosis with radiculopathy after failing nonoperative care. POD #1s/p L4-L5 decompression and fusion with Dr. Carmichael #Post operative anemia 2/2 blood loss EBL: 50mL & Preop Hgb: 13.2 as of 02/28/25 Hgb post op 10.7 Transfuse <7 or symptomatic CBC in am CTM Per primary service for pain control, wound care, anticoagulation and activities Continue incentive spirometry, PT/OT when appropriate as per primary service (3) Crohn's disease: Plan: Not currently undergoing active treatment; follows [facility], Dr. Baig Considering biologic therapy once he recovers from above spinal operation per visit note from 01/30/25 (4) Acid reflux: Plan: Continue PPI DVT Prophylaxis: As per primary service PCP: Rafael Blanc MD Disposition: Routine DC planning as per primary service Thank you for this consultation. We will follow the patient with you during their hospital stay. You can reach a member of the [facility] Hospitalist Team 06/02 via [email or web address]. I spent a total of 40 minutes coordinating, documenting, and providing care for this patient excluding time spent in the performance of separately billed services Admission and Anticipated Discharge Date Admission Date: March 19, 2025 Subjective reports some discomfort after ambulation this am, but reports being able to ambulate independently and with BM this morning Physical Exam Constitutional: WD/WN, vitals as above Respiratory: normal respiratory effort, lungs clear to auscultation Cardiovascular: RRR, no murmur, no edema Gastrointestinal (Abdomen): normal bowel sounds, soft, nontender, no hepatosplenomegaly Results & Data Results & Data Vital Signs (Past 12 Hours) Vital Signs Temp Pulse Resp BP BP Pulse Ox O2 Del Method 03/20/25 07:54 36.8 C 73 18 148/86 H 96 Room Air 03/20/25 07:41 Room Air 03/20/25 03:00 36.8 C 77 18 100/57 L 95 Room Air 03/19/25 23:00 36.8 C 75 16 124/75 94 Room Air Laboratory Results Short CBC 03/20/25 Range/Units 05:40 WBC 11.57 H (4.8-10.8) K/ul Hgb 10.7 L (14.0-18.0) g/dl Hct 30.3 L (42.0-52.0) % Plt Count 192 (130-400) K/uL BMP 03/20/25 05:40 Sodium 137 Potassium 3.5 Chloride 104 Carbon Dioxide 27 BUN 10 Creatinine 0.90 Glucose 107 H Calcium 8.6 Medications Administered Home Medications Medication Instructions Recorded Confirmed Last Taken lorazepam 0.5 mg tablet 0.5 mg PO DAILY PRN Anxiety 08/27/19 03/19/25 Unknown omeprazole 20 mg capsule,delayed 20 mg PO BID 08/27/19 03/19/25 03/19/25 07:00 release acetaminophen 500 mg tablet 1,000 mg PO BID PRN Pain 02/19/25 03/19/25 03/18/25 16:00 celecoxib 200 mg capsule (Celebrex) 200 mg PO QAM 02/19/25 03/19/25 03/18/25 07:00 losartan 50 mg tablet 100 mg PO QAM 02/19/25 03/19/25 03/18/25 07:00 amlodipine 10 mg tablet 10 mg PO DAILY 03/19/25 03/19/25 Unknown cholecalciferol (vitamin D3) 125 250 mcg PO DAILY 03/19/25 03/19/25 03/18/25 12:00 mcg (5,000 unit) tablet (Vitamin D3) oxycodone 5 mg tablet 5 mg PO Q6H PRN pain #30 tabs 03/19/25 03/19/25 Unknown tramadol 50 mg tablet 50 mg PO Q6H PRN pain, moderate 03/19/25 03/19/25 Unknown #30 tabs Active Medications Generic Name Dose Route Start Last Admin Trade Name Freq PRN Reason Stop Dose Admin Amlodipine Besylate 10 mg 03/20/25 09:00 03/20/25 09:40 Amlodipine Besylate 5 Mg Tab PO 04/19/25 08:59 10 mg DAILY BARBARA Administration Hydromorphone HCl 1 mg 03/19/25 13:06 03/20/25 09:12 Hydromorphone Inj 1 Mg/Ml Syringe IV 04/02/25 13:05 1 mg Q3H PRN Administration SEVERE Pain (7,8,9,10) Dexamethasone 6 mg/ Syringe 1.5 mls @ 1 mls/min 03/20/25 09:00 03/20/25 09:44 IV 03/22/25 09:02 1 mls/min DAILY BARBARA Administration Cefazolin Sodium 2,000 mg in 15 mls @ 3.75 mls/min 03/20/25 06:30 03/20/25 06:46 Ancef 2000mg IV 03/27/25 06:29 3.75 mls/min Q8H BARBARA Administration Ketorolac Tromethamine 30 mg 03/19/25 13:06 03/19/25 15:21 Ketorolac 30 Mg/Ml Vial IV 30 mg Q6H PRN Administration Pain Lorazepam 0.5 mg 03/19/25 13:06 03/19/25 21:31 Lorazepam 0.5 Mg Tab PO 04/18/25 13:05 0.5 mg Q8H PRN Administration Sedation/Anxiety Losartan Potassium 100 mg 03/20/25 09:00 03/20/25 09:40 Losartan Potassium 50 Mg Tab PO 04/19/25 08:59 100 mg QAM BARBARA Administration Oxycodone HCl 5 - 10 mg 03/19/25 13:06 03/20/25 04:15 Oxycodone Hcl Ir 5 Mg Tab (Immediate Release) PO 04/02/25 13:05 5 mg Q4H PRN Administration MOD/SEV Pain & Pre PT Pantoprazole Sodium 40 mg 03/19/25 21:00 03/20/25 09:40 Pantoprazole 40 Mg Tab PO 04/18/25 20:59 40 mg BID BARBARA Administration Senna/Docusate Sodium 2 tab 03/19/25 21:00 03/19/25 21:21 Docusate Sodium/Senna 50/8.6mg Tab PO 04/18/25 20:59 2 tab HS BARBARA Administration Vitamin D 250 mcg 03/20/25 09:00 03/20/25 09:40 Cholecalciferol 125 Mcg (5,000 Units) Tab PO 04/19/25 08:59 250 mcg DAILY BARBARA Administration (3) Crohn's disease Gastrointestinal tract location: unspecified location Digestive disease complication type: without complication Qualified Code(s): K50.90 - Crohn's disease, unspecified, without complications (4) Acid reflux Esophagitis presence: esophagitis presence not specified Qualified Code(s): K21.9 - Gastro-esophageal reflux disease without esophagitis
[2025-03-21] MEDS: ACETAMINOPHEN 500 MG TAB PO PRN (06:19)
[2025-03-21 07:13] LABS: Hematocrit (blood only) 30.4 % (42.0-52.0); Hemoglobin 10.8 g/dl (14.0-18.0)
[2025-03-21 07:59] VITALS: BP 151/85; PULSE 70; RESP 18; TEMP 97.3; O2SAT 94
--- NOTE | 2025-03-21 09:50 | Discharge Summary ---
Date of Service March 21, 2025 Admission HPI Per Admitting Provider This is a 59-year-old male presents cardiac send back and leg pain and failing course of nonoperative care is here for surgical invention. Principal Diagnosis Lumbar spine spondylolisthesis with radiculopathy Discharge Data Allergies Allergy/AdvReac Type Severity Reaction Status Date / Time No Known Drug Allergies Allergy Verified 03/19/25 09:15 Consultations 03/19/25 13:06 Consult Hospitalist Routine Procedures Performed Operation Date: 03/19/25 10:25 Actual Procedures p L4-L5 Decompression and Fusion(Not Applicable) - Tan Carmichael DO Ordered Studies 03/19/25 10:25 FL lumbar spine 2-3V Routine Hospital Course (1) Spondylolisthesis, lumbar region: Patient with limited vision fusion trial as well as negative orthopedic for postoperative and postop day progressed appropriate. Leg symptoms markedly improved. LITO drain decreasing. Extra strength testing. Pain controlled. Simply discharged home. Discharge orders instructions from the chart for further review. Total Time Total Time Spent Total Time Spent (In Minutes): 20 minutes Discharge Plan Discharge Items Patient Disposition: Home - Self-Care Reason For Visit: Spondylolisthesis Lumbar Region, Other Spondylosis Discharge Diagnosis: Lumbar spondylolisthesis with radiculopathy Activity: As commented below Non-emergency contact: Primary Care Provider Call non-emergency contact if: you have any medication questions Follow-up/Referrals: Rafael Blanc MD [Primary Care Provider] - (Date & Time 04/02/2025 8:40 AM Provider: Shanita Sloan PA-C [facility]) Diet: Regular Addtl Attending Provider Instructions: ACTIVITY RECOMMENDATIONS: SELF CARE INSTRUCTIONS AFTER THORACIC/LUMBAR FUSIONS 1. You may walk to your tolerance. It is good exercise for your legs and back. Expect some back and intermittent leg aches and pains. 2. You may perform "counter-top" level activities (make a sandwich, deo with a project, etc.). 3. No bending or lifting of more than 10 pounds or back twisting of any nature (roll like a log when turning in bed). 4. You may ride in a car for 20-30 minutes at a time. No driving until after your first visit with your doctor. 5. Frequent changes of position and restricting sitting to 30 minutes at a time will help limit the amount of back spasms and stiffness you may experience. 6. You may discontinue the use of ambulatory aids (cane, crutches, etc.) once your strength and confidence allow. 7. You may supervisor rice milling the shower and let water strike your incision when you arrive home at least once daily. Do not take a tub bath, sit in a hot tub or go into a swimming pool until after your first recheck in the office. 8. You may resume previous diet. SPECIAL CARE INSTRUCTIONS: VERY IMPORTANT TO READ AND REVIEW A. Your surgical incision has been closed with a cosmetic suture under the skin that will dissolve in about 6 weeks. In 14 days, you can use a pair of clean scissors and cut the suture that is left outside of the skin at the ends of your incision. 1. The small skin tapes can be removed 7 days after surgery if they have not fallen off by that point. 2. You may keep the wound open to air as much as possible to promote healing after post-op day number 5 unless told otherwise by your doctor. 3. If you think the wound looks like it is becoming infected (redness or worsening drainage) and/or you are experiencing fever, chill or worsening back pain and muscle spasms, contact the office so that we may evaluate you as soon as possible. B. Complications are uncommon, but please contact us if you have any signs or symptoms of: 1. wound infection (fever higher than 102.5 degrees F, redness, separation of wound, drainage, or increasing pain from the incision) 2. blood clots in legs (pain, swelling, redness and warmth in legs) 3. urinary tract infection (fever higher than 102.5 degrees F, burning upon urination or increased frequency of urination) 4. nerve problems (inability to walk on your toes or heels, numbness, loss of bowel or bladder control) 5. any other symptoms that concern you C. Please call the office at if you have any concerns or questions about your operation or recovery. D. No smoking! Smoking drastically decreases the chance of a solid fusion. E. Do not take any anti-inflammatory medications (Indocin, Advil, Motrin, Aspirin, Naprosyn, etc.) as these may inhibit the chance of a solid fusion. Tylenol is okay to take for pain. MANAGING PAIN AFTER SPINAL SURGERY 1. Narcotic medication is intended for short-term use and will be provided for surgical pain. Surgical pain usually lasts for a period of 4-6 weeks. Narcotic medication includes Percocet, Vicodin, Darvocet, Tylenol #3 or Lortab. 2. Longer-term pain is more appropriately treated with non-narcotic medication such as Tylenol ES. 3. Muscle spasm is not appropriately treated with narcotics. Muscle relaxers such as Soma, Flexeril or Skelaxin can be used along with Tylenol ES. 4. Remember that we all live with some "aches and pains". This is not unusual or uncommon after an injury or as we get older. a. Back pain is expected and may include muscle spasms for 4 to 6 weeks after surgery. The pain should gradually improve. If the pain worsens for no apparent reason, please contact the office. b. Intermittent leg pain may also be experienced and should not be concerned about unless it worsens for no apparent reason. If so, please contact the office. 5. We will provide appropriate medication within the normal guidelines of their prescribed use. We will also be very cautious and aware of potential abuse and extended duration of patients' medication needs. a. Pain medications are for your comfort and to assist with sleep and rest so that the tissue can heal. They are not provided in order to return to normal activity and should not be used through the day. To do so or worsening pain at night can result from ongoing tissue damage and development of tolerance to the prescribed medicine. 6. Please allow 2-3 days to process refills. Prescriptions will not be mailed but must be picked up at the office. FOLLOW UP VISIT: Keep your scheduled follow-up appointment. Any questions, please call the office at . Pending Studies at Discharge: No Stand-Alone Forms: My [employer], Smoking Cessation Medications and DC Order Prescriptions: New tramadol 50 mg tablet 50 mg PO Q6H PRN (Reason: pain, moderate) Qty: 30 0RF oxycodone 5 mg tablet 5 mg PO Q6H PRN (Reason: pain) Qty: 30 0RF Rx Instructions: Oxycodone for severe pain tramadol for moderate pain Continued omeprazole 20 mg capsule,delayed release(DR/EC) 20 mg PO BID lorazepam 0.5 mg tablet 0.5 mg PO DAILY PRN (Reason: Anxiety) losartan 50 mg Tablet 100 mg PO QAM celecoxib [Celebrex] 200 mg Capsule 200 mg PO QAM acetaminophen 500 mg Tablet 1,000 mg PO BID PRN (Reason: Pain) cholecalciferol (vitamin D3) [Vitamin D3] 125 mcg (5,000 unit) Tablet 250 mcg PO DAILY No Action amlodipine 10 mg Tablet 10 mg PO DAILY Discharge Orders: Discharge Order (Routine); Ordered 03/21/25 Ordered By: Tan Carmichael Admission Data Admit Date/Time: 03/19/25 12:02 Attending Provider: Tan Carmichael Admit Provider: Tan Carmichael Primary Care Provider: Rafael Blanc Other Providers: Hoa Das
--- NOTE | 2025-03-21 13:55 | Fluoroscopy Report ---
FL lumbar spine 2-3V CLINICAL HISTORY: L4-L5 DECOMPRESSION AND FUSION COMPARISON STUDY: None pertinent FLUOROSCOPY TIME: 15 seconds FLUOROSCOPY IMAGES: 2 EXPOSURE DOSE: Not provided mGy FINDINGS: Fluoroscopy was provided for a lumbar spine laminectomy and fusion procedure. IMPRESSION: Please refer to the procedure report for evaluation based upon real time fluoroscopic obs ervation. ACT 112: Negative or not required by law. Electronically signed by: Radha Paz M.D. 03/21/2025 1:54 PM
--- NOTE | 2025-03-21 16:16 | Hospitalist Progress Note ---
Date of Service March 21, 2025 Assessment & Plan (1) Spondylolisthesis, lumbar region: (2) S/P spinal surgery: Plan: Mr. Blevins is a 59-year-old male with past medical history significant for HTN, ileocolonic Crohn's disease, GERD, combined forms of age-related cataracts of both eyes, insomnia and tobacco use disorder who is being seen in consultation for routine postoperative medical management after undergoing elective L4-L5 decompression and fusion performed by Dr. Carmichael 03/19 for treatment of lumbar spondylosis with radiculopathy after failing nonoperative care. POD #2 s/p L4-L5 decompression and fusion with Dr. Carmichael #Post operative anemia 2/2 blood loss EBL: 50mL & Preop Hgb: 13.2 as of 02/28/25 Hgb post op 10.8 remains stable discharge per primary (3) Crohn's disease: Plan: Not currently undergoing active treatment; follows with [facility], Dr. Baig Considering biologic therapy once he recovers from above spinal operation per visit note from 01/30/25 (4) Acid reflux: Plan: Continue PPI DVT Prophylaxis: As per primary service PCP: Rafael Blanc MD Disposition: discharged today Thank you for this consultation. We will follow the patient with you during their hospital stay. You can reach a member of the [facility] Hospitalist Team 06/02 via [employer]. I spent a total of 35 minutes coordinating, documenting, and providing care for this patient excluding time spent in the performance of separately billed services Admission and Anticipated Discharge Date Admission Date: March 19, 2025 Subjective NAEO reports feeling much better and eager to return home Physical Exam Constitutional: WD/WN, vitals as above Respiratory: normal respiratory effort, lungs clear to auscultation Cardiovascular: RRR, no murmur, no edema Gastrointestinal (Abdomen): normal bowel sounds, soft, nontender, no hepatosplenomegaly Results & Data Results & Data Vital Signs (Past 12 Hours) Vital Signs Temp Pulse Resp BP Pulse Ox O2 Del Method 03/21/25 07:10 36.3 C L 70 18 151/85 H 94 Room Air Laboratory Results Short CBC 03/21/25 Range/Units 06:50 Hgb 10.8 L (14.0-18.0) g/dl Hct 30.4 L (42.0-52.0) % Medications Administered Home Medications Medication Instructions Recorded Confirmed Last Taken lorazepam 0.5 mg tablet 0.5 mg PO DAILY PRN Anxiety 08/27/19 03/19/25 Unknown omeprazole 20 mg capsule,delayed 20 mg PO BID 08/27/19 03/19/25 03/19/25 07:00 release acetaminophen 500 mg tablet 1,000 mg PO BID PRN Pain 02/19/25 03/19/25 03/18/25 16:00 celecoxib 200 mg capsule (Celebrex) 200 mg PO QAM 02/19/25 03/19/25 03/18/25 07:00 losartan 50 mg tablet 100 mg PO QAM 02/19/25 03/19/25 03/18/25 07:00 amlodipine 10 mg tablet 10 mg PO DAILY 03/19/25 03/19/25 Unknown cholecalciferol (vitamin D3) 125 250 mcg PO DAILY 03/19/25 03/19/25 03/18/25 12:00 mcg (5,000 unit) tablet (Vitamin D3) oxycodone 5 mg tablet 5 mg PO Q6H PRN pain #30 tabs 03/19/25 03/19/25 Unknown tramadol 50 mg tablet 50 mg PO Q6H PRN pain, moderate 03/19/25 03/19/25 Unknown #30 tabs (3) Crohn's disease Digestive disease complication type: without complication Gastrointestinal tract location: unspecified location Qualified Code(s): K50.90 - Crohn's disease, unspecified, without complications (4) Acid reflux Esophagitis presence: esophagitis presence not specified Qualified Code(s): K21.9 - Gastro-esophageal reflux disease without esophagitis
== END 2025-03-21 12:52 | disposition home or self-care (01) | DRG 402 ==
LOC: ASU 08:55 → 3N 12:02